=== PATIENT | male | born 1950 | race Caucasian/White ===

== ENCOUNTER 2022-04-17 10:35 | Outpatient (REF) | payer MEDICARE, SELFPAY ==
[2022-04-17 10:51] LABS: MANUAL DIFF FLAG NO
[2022-04-17 12:33] LABS: Basophils Percent Auto 0.7 % (0-2); Eosinophils Absolute Auto 0.2 X10*3/uL (0.0-0.4); Eosinophils Percent Auto 4.8 % (0-4); Hematocrit 38.5 % (42.0-52.0); Hemoglobin 12.6 g/dl (14.0-18.0); Imm Gran Abs Auto 0.01 X10*3/uL (0.00-0.03); Imm Gran Pct Auto 0.2 % (0.0-0.4); Lymphocytes Percent Auto 24.2 % (20-40); Mean Corpuscular HGB Conc 32.7 g/dl (31.0-36.0); Mean Corpuscular Hemoglobin 31.7 pg (27.0-33.0); Mean Platelet Volume 10.5 fL (9.4-12.4); Monocytes Absolute Auto 0.4 X10*3/uL (0.1-1.2); Neutrophils Absolute Auto 2.5 x10*3/uL (2.0-8.3); Neutrophils Percent Auto 60.1 % (45-73); Platelet Count 259 X10*3/uL (160-400); Red Blood Count 3.97 X10*6/uL (4.60-5.80); Red Cell Distribution Width 12.3 % (11.0-16.0); White Blood Count 4.2 X10*3/uL (4.8-10.8)
[2022-04-17 13:13] LABS: Appearance Urine CLEAR; Color Urine YELLOW; Glucose Urine UA NEG (NEG); Leukocyte Esterase Urine NEG (NEG); Nitrite Urine NEG (NEG); Specific Gravity - Urine 1.015 (1.005-1.025); Urine Blood NEG (NEG); Urine Ketones NEG (NEG); Urine Protein NEG (NEG-TRACE)
[2022-04-17 13:14] LABS: Alanine Aminotransferase 26 U/L (0-40); Albumin Level 4.2 g/dL (3.5-5.0); Alkaline Phosphatase 63 U/L (39-117); Anion Gap 12 (12-20); Aspartate Amino Transferase 28 U/L (5-37); Bilirubin Total 0.7 mg/dL (0.0-1.0); Blood Urea Nitrogen 18 mg/dL (9-16); Calcium 8.6 mg/dL (8.4-10.2); Carbon Dioxide 25 mmol/L (22-29); Chloride 106 mmol/L (96-108); Cholesterol 194 mg/dL; Estimated Glomerular Filt Rate > 60; Glucose Fasting 84 mg/dL (60-99); HDL Cholesterol 43 mg/dL; LDL Cholesterol Calculated 133 mg/dl; Potassium 4.2 mmol/L (3.3-5.1); Sodium 139 mmol/L (135-145); Total Protein 7.3 g/dL (6.5-8.0); Triglycerides 92 mg/dL
[2022-04-17 13:22] LABS: Free T4 (Free Thyroxine) 0.92 ng/dL (0.71-1.85); Prostate Specific Antigen 1.05 ng/mL (<0.05-4.0); Thyroid Stimulating Hormone 8.09 uIU/mL (0.32-4.0)
== END 2022-04-17 10:36 | disposition home or self-care (01) ==
LOC: HO.LAB 10:35
PROVIDERS: PCP Internal Medicine; Visit Provider Internal Medicine
DX: Z00.00 Encounter for general adult medical examination without abnormal findings (principal); Z12.5 Encounter for screening for malignant neoplasm of prostate; E03.9 Hypothyroidism, unspecified; E78.00 Pure hypercholesterolemia, unspecified; E55.9 Vitamin D deficiency, unspecified
CPT/HCPCS: 36415; 80053; 80061; 81003; 82306; 84153; 84439; 84443; 85025

== ENCOUNTER 2024-02-12 16:52 | Outpatient (AMB) | payer MEDICARE, SELFPAY ==
--- NOTE | 2024-02-12 16:59 | A.OFFPC_ITS ---
Vital Signs 02/12/24 17:00 Height 6 ft Weight 214 lb BMI 29.0 BP 164/90 H Blood Pressure Location Lt brachial Position Sitting Pulse 84 Pulse Source Pulse Oximeter Pulse Oximetry (%) 97 Oxygen Delivery Method Room Air Intake Visit Reasons: Physical Capture Manager Required: No Allergies No Known Allergies Allergy (Verified 02/12/24 17:11) Medication List - Last Reconciled 02/12/24 by Dionicio Hall MD levothyroxine 100 mcg PO QAM 90 days Tobacco use date assessed: 02/12/24 Fall risk assessment: No Falls in past year Last assessed Fall Risk: 02/12/24 Dental Screening Dental Screen Date: 02/12/24 Did you have a dental visit in the last 12 months?: No Did you have a dental problem in the last 6 months where you did not have access to dental care?: No HPI Physical HPI Details Patient comes in today for his annual physical examination States that he feels okay Denies any headaches or dizziness Denies any chest pains, no SOB No nausea/vomiting, no abdominal pain No change in bowel habits noted Denies any acute urinary symptoms Needs his Levothyroxine Rx refilled Patient has never had a colonoscopy done - states that his main problem that is preventing him from getting a colonoscopy is his does not drive and he has no one else in the area that can drive him home after his procedure He had a Cologuard ordered at his last visit in 2021 but he did not get it done in time and the order eventually - he would like to have this reordered FOR[facility]LY [facility], [facility] Medical History Perennial allergic rhinitis Vitamin D deficiency Dyslipidemia Overweight (BMI 25.0-29.9) Acquired hypothyroidism Surgical History No pertinent past surgical history Social History Housing: House Alcohol intake: never Patient Tobacco Use Status: Never used Tobacco Second Hand Smoke Exposure: Yes service: No Current occupational status: retired Cognitive needs: No Hearing needs: No Vision needs: No Questionnaire PHQ-9 Over the last 2 weeks, how often have you been bothered by any of the following problems? 1. Little interest or pleasure in doing things: not at all 2. Feeling down, depressed, or hopeless: not at all 3. Trouble falling or staying asleep, or sleeping too much: not at all 4. Feeling tired or having little energy: not at all 5. Poor appetite or overeating: not at all 6. Feeling bad about yourself - or that you are a failure or have let yourself or your family down: not at all 7. Trouble concentrating on things, such as reading the newspaper or watching television: not at all 8. Moving or speaking so slowly that other people could have noticed. Or the opposite - being so fidgety or restless that you have been moving around a lot more than usual: not at all 9. Thoughts that you would be better off or of hurting yourself in some way: not at all Total score: 0 Depression Screening Interpretation: Negative Depression Screening Done: Yes [id number] - PHQ-9 Billing: Yes Source: Developed by Drs. Ayush Harmon, Tiki Glaser, Hilario Randall and colleagues, with an educational kirby from [email or web address]. Thrive Questionnaire Date Thrive assessed: 02/12/24 I am a: Patient What is your living situation today?: I have a steady place to live Within the past 12 months, did the food you bought not last and you didn't have the money to get more?: Never true Within the past 12 months, did you worry whether your food would run out before you got money to buy more?: Never true Do you have trouble paying for medicines?: No Do you have trouble getting transportation to medical appointments?: No Do you have trouble paying your heating and electricity bill?: No Do you have trouble taking care of your child, family member or friend?: No Do you have trouble with day-to-day activities such as bathing, preparing meals, shopping, managing finances, etc.?: No Are you currently unemployed and looking for a job?: No Are you interested in more education?: No Please select the resources that you would like help with: None Currently or been in a relationship where the following occur: no concerns reported THRIVE Score: 0 AUDIT C Alcohol Use Questionnaire (AUDIT-C) 1. How often do you have a drink containing alcohol?: Never 3. How often do you have six or more drinks on one occasion?: Never Total Score: 0 Score Reviewed/Action Taken: Yes GENIA-7 AMB Questionnaire GENIA-7 Date GENIA - 7 assessed: 02/12/24 Feeling nervous, anxious, or on edge: 0 = Not at all Not being able to stop or control worryin = Not at all Worrying too much about different things: 0 = Not at all Trouble relaxin = Not at all Being so restless that it is hard to sit still: 0 = Not at all Becoming easily annoyed or irritable: 0 = Not at all Feeling afraid as if something awful might happen: 0 = Not at all Total GENIA-7 score (0-4 normal; 5-9 mild; 10-14 moderate; 15-21 severe): 0 Source: Developed by Drs. Ayush Harmon, Tiki Glaser, Hilario Randall and colleagues, with an educational kirby from [email or web address]. Review of Systems Const Denies chills, Denies fatigue, Denies fever(s), Denies headache(s), Denies malaise and Denies weakness Eyes Denies blurry vision, Denies change in vision, Denies irritation and Denies itchy eyes ENT Denies dysphagia, Denies dizziness, Denies otalgia, Denies headache(s), Denies nasal congestion, Denies neck pain, Denies odynophagia and Denies sore throat Card Denies chest pain, Denies rapid heart rate, Denies irregular heart rhythm, Denies palpitations and Denies dyspnea Resp Denies chest congestion, Denies cough, Denies dyspnea and Denies wheezing GI Denies abdominal pain, Denies bloating, Denies constipation, Denies dysphagia, Denies heartburn, Denies diarrhea, Denies nausea, Denies odynophagia and Denies vomiting Denies hematuria, Denies difficulty urinating, Denies dysuria, Denies urinary frequency and Denies urinary urgency Musc Denies back pain, Denies arthralgias, Denies joint swelling, Denies muscle weakness and Denies neck pain Skin/Breast Denies change in pigmentation, Denies lesions, Denies rash and Denies unusual bruising Neuro Denies dizziness, Denies headache(s), Denies paresthesias and Denies weakness Endo Denies fatigue and Denies palpitations Aller/Immun Denies itchy eyes and Denies wheezing Physical exam (Primary Care) Vital Signs: Last Vital Signs Pulse 84 02/12/24 17:00 BP 164/90 H 02/12/24 17:00 Pulse Ox 97 02/12/24 17:00 Oxygen Delivery Method Room Air 02/12/24 17:00 BMI result Body Mass Index 29.0 Tobacco/Smoking Status: Tobacco use Status Tobacco use date assessed 02/12/24 02/12/24 17:04 Patient Tobacco Use Status Never used Tobacco 02/12/24 17:04 PHQ-9: PHQ-9 Score PHQ-9: Total score 0 02/12/24 17:04 Depression Screening Interpretation: Negative Thrive Assessment: Date of Thrive Assessment Date Thrive assessed 02/12/24 02/12/24 17:04 Currently or been in a relationship where the following occur: no concerns reported Const General: no acute distress, alert and awake Orientation/consciousness: patient oriented x3 HENMT Head: Yes normocephalic and Yes atraumatic Ears: external ears normal, TM's normal bilaterally and EAC's normal General nose exam: No nasal discharge present Face and sinus: Yes normal facial exam and Yes sinuses nontender Teeth and gingiva: dentition normal Throat: Yes posterior oropharynx normal and Yes tonsils normal (no TP congestion) Eyes Eyelids: Yes eyelids normal Conjunctivae: conjunctivae normal Pupils: Equal, round and reactive pupils present EOM: EOMs intact bilaterally Neck Neck: Yes no lymphadenopathy and Yes supple Thyroid: Thyroid normal Resp Auscultation: clear to auscultation bilaterally, no rales and no wheezes Cardio Rate: regular rate Rhythm: regular rhythm Heart sounds: no murmurs GI Palpation (GI): Soft to palpation, nontender and No hepatosplenomegaly present Auscultation: normal bowel sounds General: Yes no CVA tenderness Back/Spine/Pelvis Back: no CVA tenderness Thoracic/Lumbar Spine: thoracic and lumbar spine normal to inspection Skin Lesions: no lesions Rashes: no rashes Neuro General: patient oriented x3, moves all extremities, no focal motor deficits and CN's II-XI intact bilaterally Cranial nerves: Yes Equal, round and reactive pupils present Cognition (Neuro): normal cognition Gait exam (Neuro): Normal gait present Extrem General: Yes no clubbing, cyanosis or edema Assessment and Plan Assessment & Plan (1) Annual physical exam: Code(s): Z00.00 - Encounter for general adult medical examination without abnormal findings Plan: Check labs (2) 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 Code(s): E03.9 - Hypothyroidism, unspecified Plan: Continue Levothyroxine 100 mcg QD Will recheck his TFTs for follow up (3) Elevated blood pressure reading: Code(s): R03.0 - Elevated blood-pressure reading, without diagnosis of hypertension Plan: Patient has a history of white coat syndrome His BP readings at home have often been much lower (mostly normal) than readings here in the office in the past Reinforced low-sodium diet Patient is reminded to continue monitoring his BP regularly and to keep a BP diary, which he is to bring in at his next follow-up visit for review (4) Dyslipidemia: Code(s): E78.5 - Hyperlipidemia, unspecified Plan: Reinforced low cholesterol diet Will recheck his fasting lipids INOCENTE for follow up (5) Vitamin D deficiency: Code(s): E55.9 - Vitamin D deficiency, unspecified Plan: Patient was taking 5000 units of Vitamin D3 daily in the past Will recheck his Vitamin D level for follow up (6) Perennial allergic rhinitis: Code(s): J30.89 - Other allergic rhinitis Plan: Follows up with ENT regularly for his sinus allergies/congestion; was considering endoscopic sinus surgery but again could not proceed with surgery as he has no options for transportation as his is no longer driving and he has no other family in the area (7) Overweight (BMI 25.0-29.9): Code(s): E66.3 - Overweight Plan: Reinforced diet/exercise as tolerated/lose weight (8) Colon cancer screening: Code(s): Z12.11 - Encounter for screening for malignant neoplasm of colon Plan: Patient has never had a screening colonoscopy done, mainly because he reportedly has no one available to drive him home after his procedure States that he has no increased risk or family history of colon cancer We previously ordered Cologuard testing for him but he was not able to get the test done timely and the order eventually ; he is presently requesting for a new order and will get the test done as soon as he gets it - Cologuard reordered Plan Follow up in 6 months Orders: Orders Complete Blood Count Auto Diff Today D64.9 - Anemia, unspecified, Z00.00 - Encounter for general adult medical examination without abnormal findings Thyroid Stimulating Hormone Today E03.9 - Hypothyroidism, unspecified, Z00.00 - Encounter for general adult medical examination without abnormal findings Free T4 (Free Thyroxine) Today E03.9 - Hypothyroidism, unspecified, Z00.00 - Encounter for general adult medical examination without abnormal findings Comprehensive [place]. Panel Fast Today E78.00 - Pure hypercholesterolemia, unspecified, Z00.00 - Encounter for general adult medical examination without abnormal findings Lipid Panel Today E78.00 - Pure hypercholesterolemia, unspecified, Z00.00 - Encounter for general adult medical examination without abnormal findings Vitamin D 25-OH Total Today E55.9 - Vitamin D deficiency, unspecified, Z00.00 - Encounter for general adult medical examination without abnormal findings Prostate Specific Antigen Today N40.0 - Benign prostatic hyperplasia without lower urinary tract symptoms, Z00.00 - Encounter for general adult medical examination without abnormal findings UA CC w/rflx Micro + Cult Today R30.0 - Dysuria, Z00.00 - Encounter for general adult medical examination without abnormal findings Referrals Cologuard Test Z12.11 - Encounter for screening for malignant neoplasm of colon, Z12.12 - Encounter for screening for malignant neoplasm of rectum Medications: Refilled levothyroxine 100 mcg PO QAM 90 days 90 tabs 1RF Review Patient declined Colonoscopy: 02/12/24 Coding Level of Care Code Est Pt Prev Care >65y(47010) Diagnoses Annual physical exam Z00.00 Acquired hypothyroidism E03.9 Elevated blood pressure reading R03.0 Dyslipidemia E78.5 Vitamin D deficiency E55.9 Perennial allergic rhinitis J30.89 Overweight (BMI 25.0-29.9) E66.3 Colon cancer screening Z12.11
[2024-02-12 17:00] VITALS: BP 164/90; PULSE 84; O2SAT 97; BMI 29.0
== END 2024-02-12 17:30 | disposition home or self-care (01) ==
PROVIDERS: PCP Internal Medicine; Visit Provider Internal Medicine
DX: Z00.00 Encounter for general adult medical examination without abnormal findings (principal); E03.9 Hypothyroidism, unspecified; R03.0 Elevated blood-pressure reading, without diagnosis of hypertension; E78.5 Hyperlipidemia, unspecified; E55.9 Vitamin D deficiency, unspecified; J30.89 Other allergic rhinitis; E66.3 Overweight; Z12.11 Encounter for screening for malignant neoplasm of colon
CPT/HCPCS: 99397

== ENCOUNTER 2024-02-18 09:30 | Outpatient (REF) | payer MEDICARE, SELFPAY ==
[2024-02-18 09:54] LABS: MANUAL DIFF FLAG NO
[2024-02-18 10:50] LABS: Basophils Absolute Auto 0.1 X10*3/uL (0.0-0.2); Basophils Percent Auto 1.3 % (0-2); Eosinophils Absolute Auto 0.2 X10*3/uL (0.0-0.4); Eosinophils Percent Auto 5.1 % (0-4); Hematocrit 37.9 % (42.0-52.0); Hemoglobin 12.8 g/dl (14.0-18.0); Imm Gran Abs Auto 0.01 X10*3/uL (0.00-0.03); Imm Gran Pct Auto 0.3 % (0.0-0.4); Lymphocytes Absolute Auto 0.8 X10*3/uL (1.2-4.9); Lymphocytes Percent Auto 20.9 % (20-40); Mean Corpuscular HGB Conc 33.8 g/dl (31.0-36.0); Mean Corpuscular Hemoglobin 32.7 pg (27.0-33.0); Mean Corpuscular Volume 96.7 fL (80.0-98.0); Mean Platelet Volume 10.2 fL (9.4-12.4); Monocytes Absolute Auto 0.4 X10*3/uL (0.1-1.2); Neutrophils Absolute Auto 2.3 x10*3/uL (2.0-8.3); Neutrophils Percent Auto 61.4 % (45-73); Platelet Count 245 X10*3/uL (160-400); Red Blood Count 3.92 X10*6/uL (4.60-5.80); Red Cell Distribution Width 12.3 % (11.0-16.0); White Blood Count 3.7 X10*3/uL (4.8-10.8)
[2024-02-18 11:14] LABS: Appearance Urine Clear; Color Urine Yellow; Glucose Urine UA Negative (Negative); Leukocyte Esterase Urine Negative (Negative); Nitrite Urine Negative (Negative); PH 7.5 (5.0-9.0); Urine Blood Negative (Negative); Urine Ketones Negative (Negative); Urine Protein Negative (Neg-Trace)
[2024-02-18 11:57] LABS: Alanine Aminotransferase 29 U/L (0-40); Albumin Level 4.1 g/dL (3.5-5.0); Alkaline Phosphatase 68 U/L (39-117); Anion Gap 14 (12-20); Aspartate Amino Transferase 37 U/L (5-37); Bilirubin Total 1.1 mg/dL (0.0-1.0); Blood Urea Nitrogen 21 mg/dL (9-16); Calcium 9.4 mg/dL (8.4-10.2); Carbon Dioxide 27 mmol/L (22-29); Chloride 105 mmol/L (96-108); Cholesterol 171 mg/dL (<200); Estimated Glomerular Filt Rate > 60; Glucose Fasting 83 mg/dL (60-99); HDL Cholesterol 53 mg/dL (>40); LDL Cholesterol Calculated 110 mg/dL (<100); Sodium 142 mmol/L (135-145); Total Protein 7.6 g/dL (6.5-8.0); Triglycerides 43 mg/dL (<150)
[2024-02-18 12:02] LABS: Free T4 (Free Thyroxine) 1.18 ng/dL (0.71-1.85); Thyroid Stimulating Hormone 2.75 uIU/mL (0.32-4.0); Vitamin D 25-OH Total 25.2 ng/mL (>30)
[2024-02-18 12:11] LABS: Prostate Specific Antigen 1.19 ng/mL (<0.05-4.0)
== END 2024-02-18 09:31 | disposition home or self-care (01) ==
LOC: HO.LAB 09:30
PROVIDERS: PCP Internal Medicine; Visit Provider Internal Medicine
DX: Z00.00 Encounter for general adult medical examination without abnormal findings (principal); E55.9 Vitamin D deficiency, unspecified; R30.0 Dysuria; E03.9 Hypothyroidism, unspecified; E78.00 Pure hypercholesterolemia, unspecified; D64.9 Anemia, unspecified; N40.0 Benign prostatic hyperplasia without lower urinary tract symptoms; Z12.5 Encounter for screening for malignant neoplasm of prostate
CPT/HCPCS: 36415; 80053; 80061; 81003; 82306; 84153; 84439; 84443; 85025

== ENCOUNTER 2025-02-19 16:45 | Outpatient (AMB) | payer MEDICARE, SELFPAY ==
[2025-02-19 16:56] VITALS: BP 164/90; PULSE 97; TEMP 36.2; O2SAT 97; BMI 27.8
--- NOTE | 2025-02-19 16:56 | A.OFFPC_ITS ---
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 Required: No Accompanied by: Self / Same As Patient Allergies No Known Allergies Allergy (Verified 02/19/25 17:28) Medication List - Last Reconciled 02/19/25 by Dionicio Hall MD levothyroxine 100 mcg PO QAM 90 days Tobacco use date assessed: 02/19/25 Fall risk assessment: No Falls in past year Last assessed Fall Risk: 02/19/25 Dental Screening Dental Screen Date: 02/19/25 Did you have a dental visit in the last 12 months?: No Did you have a dental problem in the last 6 months where you did not have access to dental care?: No Was dental information given to patient?: No HPI PHYSICAL HPI Details Patient comes in today for his annual physical examination States that he has been experiencing problems with ambulation for the past few months Patient relates that he's had increased swelling of his legs for at least the past 6 months and he feels that his swelling has gotten a lot worse over the past month or two States that lately, he's had to use both of his arms to push off on his chair just to be able to get up from the chair Patient states that since his 's health condition and cognitive problems got worse last year, he's had to sleep in his recliner at night He denies any headaches or dizziness Denies any chest pains, no increased SOB No nausea/vomiting, no abdominal pain No change in bowel habits noted He denies any acute urinary symptoms Needs his Levothyroxine Rx refilled Patient has declined going for a screening colonoscopy in the past, mostly because he has no one to help drive him home after his procedure as his , who is his only family, is unable to drive He also cannot leave his unattended on her own for any length of time due to her declining cognition but he ended up getting Cologuard testing done instead last year on 09/11/2024 - Cologuard came back negative He's had no follow up labs done recently [facility] Medical History (Updated 02/21/25 @ 05:15 by Dionicio Hall MD) Cardiac arrhythmia Colonoscopy refused Lymphedema of both lower extremities Perennial allergic rhinitis Vitamin D deficiency Dyslipidemia Overweight (BMI 25.0-29.9) Acquired hypothyroidism Surgical History No pertinent past surgical history Social History Housing: House Alcohol intake: never Patient Tobacco Use Status: Never used Tobacco e-Cigarette/Vaping Use: Never Used Second Hand Smoke Exposure: Yes service: No Current occupational status: retired Cognitive needs: No Hearing needs: No Vision needs: No Questionnaire PHQ-9 Over the last 2 weeks, how often have you been bothered by any of the following problems? 1. Little interest or pleasure in doing things: not at all 2. Feeling down, depressed, or hopeless: not at all 3. Trouble falling or staying asleep, or sleeping too much: not at all 4. Feeling tired or having little energy: several days 5. Poor appetite or overeating: not at all 6. Feeling bad about yourself - or that you are a failure or have let yourself or your family down: not at all 7. Trouble concentrating on things, such as reading the newspaper or watching television: not at all 8. Moving or speaking so slowly that other people could have noticed. Or the opposite - being so fidgety or restless that you have been moving around a lot more than usual: several days 9. Thoughts that you would be better off or of hurting yourself in some way: not at all Total score: 2 Depression Screening Interpretation: Negative Depression Screening Done: Yes 28909 - PHQ-9 Billing: Yes Source: Developed by Drs. Ayush Harmon, Tiki Glaser, Hilario Randall and colleagues, with an educational kirby from [employer]. Thrive Questionnaire Date Thrive assessed: 02/19/25 I am a: Patient What is your living situation today?: I have a steady place to live Within the past 12 months, did the food you bought not last and you didn't have the money to get more?: Never true Within the past 12 months, did you worry whether your food would run out before you got money to buy more?: Never true Do you have trouble paying for medicines?: No Do you have trouble getting transportation to medical appointments?: No Do you have trouble paying your heating and electricity bill?: No Do you have trouble taking care of your child, family member or friend?: No Do you have trouble with day-to-day activities such as bathing, preparing meals, shopping, managing finances, etc.?: No Are you currently unemployed and looking for a job?: No Are you interested in more education?: I choose not to answer this question Please select the resources that you would like help with: None Currently or been in a relationship where the following occur: No concerns reported THRIVE Score: 0 AUDIT C Alcohol Use Questionnaire (AUDIT-C) 1. How often do you have a drink containing alcohol?: Never 2. How many drinks containing alcohol do you have on a typical day when you are drinking?: 1 or 2 3. How often do you have six or more drinks on one occasion?: Never Total Score: 0 Score Reviewed/Action Taken: Yes GENIA-7 AMB Questionnaire GENIA-7 Date GENIA - 7 assessed: 02/19/25 Feeling nervous, anxious, or on edge: 0 = Not at all Not being able to stop or control worryin = Not at all Worrying too much about different things: 0 = Not at all Trouble relaxin = Not at all Being so restless that it is hard to sit still: 0 = Not at all Becoming easily annoyed or irritable: 0 = Not at all Feeling afraid as if something awful might happen: 0 = Not at all Total GENIA-7 score (0-4 normal; 5-9 mild; 10-14 moderate; 15-21 severe): 0 Source: Developed by Drs. Ayush Harmon, Tiki Glaser, Hilario Randall and colleagues, with an educational kirby from [employer]. GENIA-7 Assessment Billing GENIA-7 Assessment Tool: GENIA-7 Assessment 75118 Review of Systems Const Denies chills, Denies fatigue, Denies fever(s), Denies headache(s), Denies malaise and Denies weakness Eyes Denies blurry vision, Denies change in vision, Denies irritation and Denies itchy eyes ENT Denies dysphagia, Denies dizziness, Denies otalgia, Denies headache(s), Denies nasal congestion, Denies neck pain, Denies odynophagia and Denies sore throat Card Denies rapid heart rate, Denies irregular heart rhythm, Denies palpitations and Denies dyspnea Resp Denies chest congestion, Denies cough, Denies dyspnea and Denies wheezing GI Denies abdominal pain, Denies bloating, Denies constipation, Denies dysphagia, Denies heartburn, Denies diarrhea, Denies nausea, Denies odynophagia and Denies vomiting Denies hematuria, Denies difficulty urinating, Denies dysuria, Denies urinary frequency and Denies urinary urgency Musc Reports abnormal gait (has had trouble walking due to increasing edema in legs and feet), Denies back pain, Denies arthralgias, Denies joint swelling, Denies muscle weakness, Denies neck pain and Reports stiffness Skin/Breast Denies change in pigmentation, Denies lesions, Denies rash and Denies unusual bruising Neuro Reports abnormal gait (has had trouble walking due to increasing edema in legs and feet), Denies dizziness, Denies headache(s), Denies paresthesias and Denies weakness Endo Denies fatigue and Denies palpitations Dayron/Lymph Details: increases swelling of both legs and feet Aller/Immun Denies itchy eyes and Denies wheezing Physical exam (Primary Care) Vital Signs: Last Vital Signs Temp 97.1 F 02/19/25 16:56 Pulse 97 02/19/25 16:56 BP 164/90 H 02/19/25 16:56 Pulse Ox 97 02/19/25 16:56 Oxygen Delivery Method Room Air 02/19/25 16:56 BMI result Body Mass Index 27.8 Tobacco/Smoking Status: Tobacco use Status Tobacco use date assessed 02/19/25 02/19/25 17:01 Patient Tobacco Use Status Never used Tobacco 02/19/25 17:01 e-Cigarette/Vaping Use Never Used 02/19/25 17:01 PHQ-9: PHQ-9 Score PHQ-9: Total score 2 02/20/25 23:00 Depression Screening Interpretation: Negative Thrive Assessment: Date of Thrive Assessment Date Thrive assessed 02/19/25 02/19/25 17:01 Currently or been in a relationship where the following occur: No concerns rep orted Const General: no acute distress, alert and awake Orientation/consciousness: patient oriented x3 [facility] Head: Yes normocephalic and Yes atraumatic Ears: external ears normal, TM's normal bilaterally and EAC's normal General nose exam: No nasal discharge present Face and sinus: Yes normal facial exam and Yes sinuses nontender Teeth and gingiva: dentition normal Throat: Yes posterior oropharynx normal and Yes tonsils normal (no TP congestion) Eyes Eyelids: Yes eyelids normal Conjunctivae: conjunctivae normal Pupils: Equal, round and reactive pupils present EOM: EOMs intact bilaterally Neck Neck: Yes no lymphadenopathy and Yes supple Thyroid: Thyroid normal Resp Auscultation: clear to auscultation bilaterally, no rales and no wheezes Cardio Rate: regular rate Rhythm: abnormal rhythm with ectopic beats Heart sounds: no murmurs GI Palpation (GI): Soft to palpation, nontender and No hepatosplenomegaly present Auscultation: normal bowel sounds General: Yes no CVA tenderness Back/Spine/Pelvis Back: no CVA tenderness Thoracic/Lumbar Spine: No lumbar spinal tenderness Skin Other: (+) some mild scaling erythematous rash noted on both lower legs and ankles Neuro General: patient oriented x3, moves all extremities, no focal motor deficits and CN's II-XI intact bilaterally Cranial nerves: Yes Equal, round and reactive pupils present Cognition (Neuro): normal cognition Gait exam (Neuro): Normal gait present Extrem General: No clubbing, No cyanosis and Yes edema (2 to 3+ bipedal edema noted over both lower extremities) Coding Level of Care Code Est Pt Prev Care >65y(72239) Diagnoses Annual physical exam Z00.00 Lymphedema of both lower extremities I89.0 Other cardiac arrhythmia I49.8 Arrhythmia type: other cardiac arrhythmia Acquired hypothyroidism E03.9 Elevated blood pressure reading R03.0 Dyslipidemia E78.5 Vitamin D deficiency E55.9 Perennial allergic rhinitis J30.89 Overweight (BMI 25.0-29.9) E66.3 Additional Codes GENIA-7 Assessment Billing - GENIA-7 Assessment Tool: GENIA-7 Assessment 13973 ([id number]) PHQ-9 - 91982 - PHQ-9 Billing: Yes ([id number]) Assessment & Plan Assessment & Plan (1) Annual physical exam: Code(s): Z00.00 - Encounter for general adult medical examination without abnormal findings Category: Medical Plan: Check labs Patient had a negative Cologuard test done last year on 09/11/2024; he has never had a screening colonoscopy done in the past (2) Lymphedema of both lower extremities: Code(s): I89.0 - Lymphedema, not elsewhere classified Category: Medical Plan: Will send patient for venous doppler of both lower extremities for further evaluation and primarily to r/o any DVT Will also send him for some labs INOCENTE for further evaluation Will refer him as well to vascular surgery for further evaluation and management (3) Cardiac arrhythmia: Code(s): I49.9 - Cardiac arrhythmia, unspecified Category: Medical Qualifiers: Arrhythmia type: other cardiac arrhythmia Qualified Code(s): I49.8 - Other specified cardiac arrhythmias Plan: Patient appears to have frequent ectopic beats on auscultation of his heart during today's physical exam Will send him for a 12-lead EKG for further evaluation and this can be done at the same time when patient goes for his labs, which he is instructed to do INOCENTE Will also send him for echocardiogram and chest x-rays INOCENTE for further evaluation (4) 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 Code(s): E03.9 - Hypothyroidism, unspecified Category: Medical Plan: Continue Levothyroxine 100 mcg QD - Rx refilled Will recheck patient's TFTs for follow up (5) Elevated blood pressure reading: Code(s): R03.0 - Elevated blood-pressure reading, without diagnosis of hypertension Category: Medical Plan: (+) Hx of white coat syndrome Patient's BP readings at home tends to be much lower than his readings here in the office in the past Reinforced low sodium diet Patient is reminded to continue monitoring his blood pressure at home and to keep a blood pressure diary - he is advised to bring his BP diary in with him at his next follow up appointment for us to review them (6) Dyslipidemia: Code(s): E78.5 - Hyperlipidemia, unspecified Category: Medical Plan: Reinforced low cholesterol diet Will recheck his fasting lipids INOCENTE for follow up (7) Vitamin D deficiency: Code(s): E55.9 - Vitamin D deficiency, unspecified Category: Medical Plan: Will recheck patient's vitamin D level for follow up (8) Perennial allergic rhinitis: Code(s): J30.89 - Other allergic rhinitis Category: Medical Plan: Patient follows up with ENT regularly for his sinus allergies/congestion He was considering endoscopic sinus surgery but could not proceed with surgery as he has no options for transportation since his is no longer driving and he has no other family in the area (9) Overweight (BMI 25.0-29.9): Code(s): E66.3 - Overweight Category: Medical Plan: Reinforced diet; exercise and weight loss are not practical at this time due to patient's comorbidities and worsening lymphedema and balance/gait impairment Plan Follow up in 3 months Orders: Orders B Type Natriuretic Peptide 02/19/25 I50.9 - Heart failure, unspecified, M79.89 - Other specified soft tissue disorders, Z00.00 - Encounter for general adult medical examination without abnormal findings Free T4 (Free Thyroxine) 02/19/25 E03.9 - Hypothyroidism, unspecified, M79.89 - Other specified soft tissue disorders, Z00.00 - Encounter for general adult medical examination without abnormal findings Vitamin D 25-OH Total 02/19/25 E55.9 - Vitamin D deficiency, unspecified, M79.89 - Other specified soft tissue disorders, Z00.00 - Encounter for general adult medical examination without abnormal findings UA CC w/rflx Micro + Cult 02/19/25 M79.89 - Other specified soft tissue disorders, R30.0 - Dysuria, Z00.00 - Encounter for general adult medical examination without abnormal findings ECG 12 lead EKG 02/19/25 I49.9 - Cardiac arrhythmia, unspecified, M79.89 - Other specified soft tissue disorders CA echo transthoracic complete 02/19/25 I49.9 - Cardiac arrhythmia, unspecified, M79.89 - Other specified soft tissue disorders US venous duplex LE BI 02/19/25 M79.89 - Other specified soft tissue disorders Complete Blood Count Auto Diff 02/19/25 D64.9 - Anemia, unspecified, M79.89 - Other specified soft tissue disorders, Z00.00 - Encounter for general adult medical examination without abnormal findings Comprehensive [place]. Panel Fast 02/19/25 E78.00 - Pure hypercholesterolemia, unspecified, M79.89 - Other specified soft tissue disorders, Z00.00 - Encounter for general adult medical examination without abnormal findings Lipid Panel 02/19/25 E78.00 - Pure hypercholesterolemia, unspecified, M79.89 - Other specified soft tissue disorders, Z00.00 - Encounter for general adult medical examination without abnormal findings Thyroid Stimulating Hormone 02/19/25 E03.9 - Hypothyroidism, unspecified, M79.89 - Other specified soft tissue disorders, Z00.00 - Encounter for general adult medical examination without abnormal findings Vitamin B12 and Folate 02/19/25 E53.8 - Deficiency of other specified B group vitamins, M79.89 - Other specified soft tissue disorders, Z00.00 - Encounter for general adult medical examination without abnormal findings Prostate Specific Antigen 02/19/25 N40.0 - Benign prostatic hyperplasia without lower urinary tract symptoms, Z00.00 - Encounter for general adult medical examination without abnormal findings C Reactive Protein 02/19/25 M79.89 - Other specified soft tissue disorders, Z00.00 - Encounter for general adult medical examination without abnormal findings Erythrocyte Sedimentation Rate 02/19/25 M79.7 - Fibromyalgia, M79.89 - Other specified soft tissue disorders XR chest 2V 02/19/25 I49.9 - Cardiac arrhythmia, unspecified, M79.89 - Other specified soft tissue disorders Referrals Vascular Surgery Referral I89.0 - Lymphedema, not elsewhere classified Medications: Refilled levothyroxine 100 mcg PO QAM 90 days 90 tabs 1RF
== END 2025-02-19 17:53 | disposition home or self-care (01) ==
LOC: HO.HMCH 16:46
PROVIDERS: PCP Internal Medicine; Visit Provider Internal Medicine
DX: Z00.00 Encounter for general adult medical examination without abnormal findings (principal); I89.0 Lymphedema, not elsewhere classified; I49.8 Other specified cardiac arrhythmias; E03.9 Hypothyroidism, unspecified; R03.0 Elevated blood-pressure reading, without diagnosis of hypertension; E78.5 Hyperlipidemia, unspecified; E55.9 Vitamin D deficiency, unspecified; J30.89 Other allergic rhinitis; E66.3 Overweight

== ENCOUNTER → 2025-02-19 16:45 | Outpatient (BNVA) | payer MEDICARE, SELFPAY | PROVIDERS: PCP Internal Medicine; Visit Provider Internal Medicine | DX: Z00.00 Encounter for general adult medical examination without abnormal findings (principal); I89.0 Lymphedema, not elsewhere classified; I49.8 Other specified cardiac arrhythmias; E03.9 Hypothyroidism, unspecified; R03.0 Elevated blood-pressure reading, without diagnosis of hypertension; E78.5 Hyperlipidemia, unspecified; E55.9 Vitamin D deficiency, unspecified; J30.89 Other allergic rhinitis; E66.3 Overweight; Z68.27 Body mass index [BMI] 27.0-27.9, adult; Z79.899 Other long term (current) drug therapy; Z13.31 Encounter for screening for depression | CPT/HCPCS: 96127; 99397 ==

== ENCOUNTER 2025-02-24 12:02 | Outpatient (REF) | payer MEDICARE, SELFPAY ==
[2025-02-24 14:20] LABS: Appearance Urine Clear; Color Urine Yellow; Glucose Urine UA Negative (Negative); Leukocyte Esterase Urine Negative (Negative); Nitrite Urine Negative (Negative); Urine Blood Negative (Negative); Urine Ketones Negative (Negative); Urine Protein Negative (Neg-Trace)
[2025-02-24 14:23] LABS: MANUAL DIFF FLAG NO
[2025-02-24 14:36] LABS: Eosinophils Absolute Auto 0.2 X10*3/uL (0.0-0.4); Eosinophils Percent Auto 3.7 % (0-4); Hematocrit 32.6 % (42.0-52.0); Hemoglobin 10.8 g/dl (14.0-18.0); Imm Gran Abs Auto 0.01 X10*3/uL (0.00-0.03); Imm Gran Pct Auto 0.2 % (0.0-0.4); Lymphocytes Absolute Auto 0.8 X10*3/uL (1.2-4.9); Lymphocytes Percent Auto 19.4 % (20-40); Mean Corpuscular HGB Conc 33.1 g/dl (31.0-36.0); Mean Corpuscular Volume 96.4 fL (80.0-98.0); Monocytes Absolute Auto 0.5 X10*3/uL (0.1-1.2); Monocytes Percent Auto 11.5 % (2-11); Neutrophils Absolute Auto 2.6 x10*3/uL (2.0-8.3); Neutrophils Percent Auto 64.2 % (45-73); Platelet Count 354 X10*3/uL (160-400); Red Blood Count 3.38 X10*6/uL (4.60-5.80); Red Cell Distribution Width 13.2 % (11.0-16.0); White Blood Count 4.1 X10*3/uL (4.8-10.8)
[2025-02-24 14:39] LABS: B Type Natriuretic Peptide 61 pg/mL (<100)
[2025-02-24 15:14] LABS: Alanine Aminotransferase 24 U/L (0-40); Albumin Level 3.6 g/dL (3.5-5.0); Alkaline Phosphatase 99 U/L (39-117); Anion Gap 11 (12-20); Aspartate Amino Transferase 46 U/L (5-37); Bilirubin Total 0.6 mg/dL (0.0-1.0); Blood Urea Nitrogen 20 mg/dL (9-16); C Reactive Protein 1.37 mg/dL (< or = 0.50); Calcium 8.6 mg/dL (8.4-10.2); Carbon Dioxide 27 mmol/L (22-29); Chloride 104 mmol/L (96-108); Cholesterol 160 mg/dL (<200); Estimated Glomerular Filt Rate > 60; Free T4 (Free Thyroxine) 0.92 ng/dL (0.71-1.85); Glucose Fasting 85 mg/dL (60-99); HDL Cholesterol 50 mg/dL (>40); LDL Cholesterol Calculated 100 mg/dL (<100); Potassium 3.9 mmol/L (3.3-5.1); Sodium 138 mmol/L (135-145); Thyroid Stimulating Hormone 17.79 uIU/mL (0.32-4.0); Total Protein 7.8 g/dL (6.5-8.0); Triglycerides 53 mg/dL (<150); Vitamin D 25-OH Total 26.2 ng/mL (>30)
[2025-02-24 15:15] LABS: Folate 11.9 ng/mL (> or = 4.0); Vitamin B12 321 pg/mL (200-900)
[2025-02-24 15:31] LABS: Erythrocyte Sedimentation Rate 73 MM/HR (0-15)
== END 2025-02-24 12:03 | disposition home or self-care (01) ==
LOC: HO.WFDLDS 12:02
PROVIDERS: Visit Provider Internal Medicine
DX: Z00.00 Encounter for general adult medical examination without abnormal findings (principal); N40.0 Benign prostatic hyperplasia without lower urinary tract symptoms; E78.00 Pure hypercholesterolemia, unspecified; E55.9 Vitamin D deficiency, unspecified; I50.9 Heart failure, unspecified; M79.7 Fibromyalgia; E53.8 Deficiency of other specified B group vitamins; D64.9 Anemia, unspecified; R30.0 Dysuria; M79.89 Other specified soft tissue disorders; E03.9 Hypothyroidism, unspecified; Z12.5 Encounter for screening for malignant neoplasm of prostate
CPT/HCPCS: 36415; 80053; 80061; 81003; 82306; 82607; 82746; 83880; 84153; 84439; 84443; 85025; 85652; 86140

== ENCOUNTER 2025-02-25 13:18 | Outpatient (REF) | payer MEDICARE, SELFPAY ==
--- NOTE | ~2025-02-25 | XR_ITS ---
EXAMINATION: XR CHEST CLINICAL INFORMATION: I49.9 - Cardiac arrhythmia, unspecified COMPARISON: None available. TECHNIQUE: 2 views of the chest were obtained. FINDINGS: There is borderline cardiac enlargement. The hilar, and mediastinal contours are normal. The lungs are diffusely hyperaerated, however clear bilaterally. There is no pneumothorax or pleural effusion. There is no focal osseous or soft tissue abnormality. There are degenerative changes throughout the spine. XR/XR chest 2V IMPRESSION: 1. COPD. 2. No superimposed active disease. 3. Borderline cardiomegaly Electronically signed by: Lizandro Gauthier MD 02/25/2025 01:48 PM EDT
--- NOTE | ~2025-02-25 | US_ITS ---
EXAMINATION: US TRIPLEX LOWER EXTREMITY, BILATERAL CLINICAL INFORMATION: Edema of the lower extremities. Rule out chronic DVT. COMPARISON: None available. TECHNIQUE: Color-flow triplex imaging with spectral analysis and compression Doppler were performed on the bilateral lower extremities. FINDINGS: Respiratory variation, normal compression and augmented flow are noted throughout the bilateral lower extremities. The visualized common femoral vein, superficial femoral vein, profunda femoral vein, popliteal vein and midcalf left peroneal and bilateral posterior tibial venous segments show no evidence of deep venous thrombosis bilaterally. The right peroneal vein could not be well seen. There is no Blake's cyst. US/US venous duplex LE BI IMPRESSION: No evidence of deep venous thrombosis involving the bilateral lower extremities. Electronically signed by: Lizandro Gauthier MD 02/25/2025 02:18 PM EDT
== END 2025-02-25 13:19 | disposition home or self-care (01) ==
LOC: HO.US 13:18
PROVIDERS: PCP Internal Medicine; Visit Provider Internal Medicine
DX: M79.89 Other specified soft tissue disorders (principal); I49.9 Cardiac arrhythmia, unspecified
CPT/HCPCS: 71046; 93970

== ENCOUNTER → 2025-02-25 13:25 | Outpatient (BNV) | payer MEDICARE, SELFPAY | PROVIDERS: PCP Internal Medicine; Visit Provider Radiology Diagnostic Radiology | DX: R60.0 Localized edema (principal); J44.9 Chronic obstructive pulmonary disease, unspecified | CPT/HCPCS: 71046; 93970 ==

== ENCOUNTER 2025-03-16 15:18 | Outpatient (AMB) | payer MEDICARE, SELFPAY ==
[2025-03-16 15:37] VITALS: BMI 27.8
--- NOTE | 2025-03-16 15:37 | A.OFFVIS_ITS ---
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 Left LE is worse than Right LE. 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 Complaints include pain over varicosities, swelling of lower extremities, cramping, fatigue, and heaviness of the lower extremities. It has been affecting their daily activities including walking, standing, and physical activity. It is noted slightly more in the left leg. He states this has been going on for years on and off since 2016 but has come back in December 2024 and getting worse. He is a nonsmoker. He is not a diabetic. He does sleep either in a chair and puts his feet up in another chair or sleeps on the couch, to be closer to his at night. He is also being sent for a cardiac echo later this week. Patient denies any previous venous surgery or injections. Patient denies any history of DVT/ PE. Patient denies any history of phlebitis. Trial of compression includes - elevation with little relief They now present for vascular evaluation regarding their varicose veins. [facility] Medical History Cardiac arrhythmia Colonoscopy refused Lymphedema of both lower extremities Perennial allergic rhinitis Vitamin D deficiency Dyslipidemia Overweight (BMI 25.0-29.9) Acquired hypothyroidism Surgical History No pertinent past surgical history Social History Housing: House Alcohol intake: never Patient Tobacco Use Status: Never used Tobacco e-Cigarette/Vaping Use: Never Used Second Hand Smoke Exposure: Yes service: No Current occupational status: retired Cognitive needs: No Hearing needs: No Vision needs: No Review of Systems Const Reports as per HPI and Denies weakness ENT Reports Normal hearing present and Denies dizziness Card Reports as per HPI, Denies chest pain, Denies chest pain at rest, Denies chest pain with activity, Denies dyspnea and Denies dyspnea on exertion Resp Reports as per HPI, Denies cough, Denies dyspnea and Denies dyspnea on exertion GI Reports as per HPI, Denies abdominal pain, Denies nausea and Denies vomiting Musc Denies numbness Skin/Breast Reports as per HPI, Denies erythema and Denies wounds Neuro Reports Normal hearing present, Denies dizziness, Denies numbness, Denies Sensory deficit (Neuro) and Denies weakness Psych Reports no additional complaints Endo Reports no additional complaints Physical Exam Vital Signs: BMI result Body Mass Index 27.8 Const General: healthy appearing and no acute distress Orientation/consciousness: patient oriented x3 HEENT Head: Yes normal to inspection Ears: hearing grossly normal bilaterally Mouth: Normal oral and palatal mucosa present Resp Effort & Inspection: normal respiratory effort and able to speak in complete sentences Auscultation: clear to auscultation bilaterally Cardio Jugular venous distension: no JVD Rate: regular rate Rhythm: regular rhythm Heart sounds: S1 normal heart sound present and S2 normal heart sound present Bruits: no abdominal aortic bruits, no carotid bruits, no femoral bruits and no renal bruits Peripheral pulses: Peripheral pulses 2+ throughout GI Inspection: Yes normal to inspection Palpation (GI): No Abdominal aortic bruit present Skin General skin exam: no rashes or lesions noted Wounds: no wounds Hair: normal Neuro General: patient oriented x3 Cranial nerves: Yes Normal hearing present Cognition (Neuro): normal cognition Gait exam (Neuro): Normal gait present Motor exam (neuro): 5/5 motor strength present throughout Sensory Exam: No Sensory deficit (Neuro) Extrem Other: Left lower extremity: +2/3 pitting edema noted. No wounds or injuries noted. Small varicosities noted around the knee. Discoloration noted at the ankles. Palpable DP pulse. Right lower extremity: +2 pitting edema noted. No wounds or injuries noted. Small varicosities noted around the knee. Discoloration noted at the ankles. Palpable DP pulse. CEAP: C - 4 E - primary A - superficial P - reflux General: Yes normal to inspection, Yes full ROM, Yes capillary refill normal and Yes normal gait Assessment & Plan Assessment & Plan (1) Varicose veins of both lower extremities with inflammation: Code(s): I83.11 - Varicose veins of right lower extremity with inflammation; I83.12 - Varicose veins of left lower extremity with inflammation Category: Medical Plan: Ayush is presenting today on a referral from his PCP for concerns of bilateral lower extremity swelling and discomfort. He has had a venous duplex US to r/o DVT on 02/25, which was negative for a DVT. In short, the patient has evidence of venous insufficiency. I have discussed the pathophysiology with the patient. In addition I have provided informational material regarding venous disease to the patient. We have discussed conservative measures including compression, elevation, and exercise. I have also provided a handout regarding appropriate use of compression stockings and where to purchase good compression stockings as well. I have taken the liberty of ordering venous insufficiency testing with the patient. They will follow up with me after testing. The patient had an opportunity to ask questions regarding the treatment plan. All questions were answered. Imaging studies, laboratory studies and physical exam results were discussed and reviewed in detail. No major barriers to understanding were identified. The patient expressed understanding and agreement with the above treatment plan. The patient is aware they should contact our office by phone for worsening of the current condition or the appearance of new symptoms. Thank you for allowing me to participate in the vascular care of this patient. If you have any questions or concerns regarding the treatment for the above condition please do not hesitate to contact me. The office telephone contact is [phone]. This note is constructed using voice recognition software. While every effort has been made to ensure accuracy, coil inspector errors may have been included. Thank you for allowing me to participate in the care of your patient. 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
== END 2025-03-16 16:03 | disposition home or self-care (01) ==
LOC: HO.HVS 15:19
PROVIDERS: PCP Internal Medicine; Visit Provider Physician Assistant Surgical
DX: I83.11 Varicose veins of right lower extremity with inflammation (principal); I83.12 Varicose veins of left lower extremity with inflammation
CPT/HCPCS: 99204

== ENCOUNTER → 2025-03-16 15:18 | Outpatient (BNVA) | payer MEDICARE, SELFPAY | PROVIDERS: PCP Internal Medicine; Visit Provider Physician Assistant Surgical | DX: I83.11 Varicose veins of right lower extremity with inflammation (principal); I83.12 Varicose veins of left lower extremity with inflammation | CPT/HCPCS: 99202 ==

== ENCOUNTER → 2025-03-18 14:40 | Outpatient (REF) | payer MEDICARE, SELFPAY ==
--- NOTE | 2025-03-18 14:42 | ECG_ITS ---
Test Reason : M79.89, I49.9 Blood Pressure : */* mmHG Vent. Rate : 95 BPM Atrial Rate : 95 BPM P-R Int : 178 ms QRS Dur : 90 ms QT Int : 352 ms P-R-T Axes : 48 47 44 degrees QTcB Int : 442 ms Normal sinus rhythm Normal ECG When compared with ECG of 13-Mar-2017 11:39, No significant change was found Referred By: Dionicio Hall Electronically Signed By: Mart Lee
--- NOTE | 2025-03-18 14:42 | CA_ITS ---
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 The visually estimated ejection fraction is between 55-60%. Diastolic function is normal for age. - Mildly increased right ventricular cavity size. There is normal right ventricular systolic function. - There is mild dilatation of the sinuses of Valsalva measuring 4.10 cm and mild dilatation of the ascending aorta measuring 3.80 cm. Findings Left Ventricle Normal left ventricular size, thickness, systolic function, and wall motion. The visually estimated ejection fraction is between 55-60%. Diastolic function is normal for age. Right Ventricle Mildly increased right ventricular cavity size. There is normal right ventricular systolic function. Atria The left atrium is normal in size. The right atrium is mildly dilated. Aortic Valve Normal aortic valve structure and function. There is no aortic valve stenosis. There is no aortic valve regurgitation. Mitral Valve The mitral valve appears normal. There is trace mitral valve regurgitation. There is no mitral valve stenosis. Pulmonic Valve The pulmonic valve is likely normal. Tricuspid Valve Normal tricuspid valve structure. There is trace tricuspid valve regurgitation. Normal right atrial pressure. There is no evidence of pulmonary hypertension. Great Vessels All visible segments of the aorta are normal in size. There is mild dilatation of the sinuses of Valsalva measuring 4.10 cm and mild dilatation of the ascending aorta measuring 3.80 cm. The visualized portions of the pulmonary artery and branches are normal. Venous The inferior vena cava is normal in size and collapses greater than 50% with inspiration. Pericardium/Pleural There is no evidence of pericardial effusion. Prior Study Comparison No prior study available for comparison. Measurements 2D Linear Measurements IVSd: 0.98 0.6-0.9/0.6-1.0 cm LVIDd: 5.21 3.9-5.3/4.2-5.9 cm LVIDd Index: 2.45 2.4-3.2/2.2-3.1 cm/m2 LVIDs: 3.15 2.0-3.6 cm LVPWd: 0.46 0.7-1.1 cm LA Diam: 3.80 2.7-3.8/3.0-4.0 cm LAIDs Index: 1.78 1.5-2.3 cm/m2 LV Mass: 158.90 67-162/88-224 g LV Mass Index: 74.60 43-95/49-115 g/m2 LVOT Diam: 2.70 3.0+(-)1.3 cm 2D Systolic Function EF 4C: 55.60 >55% EF 2C: 52.30 >55% EF BiP: 53.90 >55% Mitral Valve MV Pk E: 0.67 MV PK A: 0.74 MV Decel Time: 155.00 E/A: 0.90 E'Lateral: 7.29 E'Medial: 6.74 E/E' Med: 9.90 E/E' Lat: 9.20 PHT: 45.00 MVA PHT: 4.89 Decel [place]: 4.32 Aortic Valve AoV Pk Jatinder: 1.07 AoV Pk Grad: 5.00 ROCIO: 4.44 LVOT LVOT Pk Jatinder: 0.83 LVOT Mn Jatinder: 0.60 LVOT VTI: 0.18 LVOT Pk Grad: 3.00 LVOT Mn Grad: 2.00 LVOT Diam: 2.70 LVOT Area: 5.73 Diastolic Function MV Pk E: 0.67 MV Pk A: 0.74 E/A: 0.90 E'Medial: 6.74 E/E' Med: 9.90 E' Laterial: 7.29 E/E' Lat: 9.20 Right Ventricle TAPSE (mm): 27.70 TVS' Jatinder: 13.60 Tricuspid Valve TR Pk Jatinder: 2.30 TR Pk Grad: 21.00 RA Press: 3.00 RVSP: 24.00 Great Vessels Aorta Sinus of Valsalva: 4.10 2.0-3.5 cm Ao Asc: 3.80 2.1-3.4 cm Pulmonary Valve PV Pk Jatinder: 1.03 Peak PV Grad: 4.00 Updated in Other Vendor System with Status of Final Mart Lee MD electronically signed on 03/21/2025 10:38:07 PM with status of Final
== END ==
LOC: HO.CARD 14:40
PROVIDERS: PCP Internal Medicine; Visit Provider Internal Medicine
DX: M79.89 Other specified soft tissue disorders (principal); I49.9 Cardiac arrhythmia, unspecified; I77.810 Thoracic aortic ectasia
CPT/HCPCS: 93005; 93306

== ENCOUNTER → 2025-03-18 14:42 | Outpatient (BNV) | payer MEDICARE, SELFPAY | PROVIDERS: PCP Internal Medicine; Visit Provider Internal Medicine Cardiovascular Disease | DX: I49.9 Cardiac arrhythmia, unspecified (principal); M79.89 Other specified soft tissue disorders | CPT/HCPCS: 93010 ==

== ENCOUNTER 2025-04-16 13:18 | Outpatient (REF) | payer MEDICARE, SELFPAY ==
--- NOTE | ~2025-04-16 | US_ITS ---
EXAMINATION: US LOWER EXTREMITY VENOUS (REFLUX EXAM), BILATERAL CLINICAL INFORMATION: Varicose veins of the right lower extremity with inflammation, venous insufficiency COMPARISON: February 25, 2025 DVT study TECHNIQUE: Color flow triplex imaging and compression Doppler was performed to evaluate both the deep and the superficial systems bilaterally. To evaluate the superficial system, the examination was performed in the upright position. Color-flow Doppler ultrasound and compression ultrasound were utilized. In addition, maneuvers were utilized to demonstrate reflux. FINDINGS: 1. DEEP VENOUS ULTRASOUND OF THE RIGHT LOWER EXTREMITY: Common Femoral Vein: Compressible, normal respiratory variation and augmented flow. Femoral Vein: Compressible, normal color flow and augmentation. Popliteal Vein: Compressible, normal augmentation. Deep Reflux: There is no evidence of reflux in the deep system in either the common femoral vein, superficial femoral or the popliteal vein. 2. SUPERFICIAL ULTRASOUND WITH DOPPLER OF RIGHT LOWER EXTREMITY: GREAT SAPHENOUS VEIN: Saphenofemoral Junction: 0.8 cm; Reflux: 0 ms Proximal Thigh: 0.6 cm; Reflux: 2100 ms Mid Thigh: 0.5 cm; Reflux: > 3500 ms Distal Thigh: 0.4 cm; Reflux: 0 ms At Knee: 0.3 cm; Reflux: 0 ms Below Knee/Proximal Calf: 0.3 cm; Reflux: 2200 ms Mid Calf: 0.4 cm; Reflux: 0 ms Ankle/Distal Calf: 0.4 cm; Reflux: 0 ms Lateral/Medial accessory GREAT SAPHENOUS VEIN: None DUPLICATED MEDIAL GREAT SAPHENOUS VEIN: Diameter: None imaged Reflux: NA DUPLICATED LATERAL GREAT SAPHENOUS VEIN: Diameter: None imaged Reflux: NA SMALL SAPHENOUS VEIN: Drainage: Thigh extension Saphenopopliteal Junction: 0.3 cm; Reflux: 0 ms Mid calf: 0.3 cm; Reflux: 0 ms Distal: 0.3 cm; Reflux: 0 ms VEIN OF GIACOMINI: Size: 0.3 cm Reflux: 0 ms PERFORATORS: Location: Great saphenous vein into varicose vein, mid thigh Size: 0.2 cm Reflux: 0 ms Location: Grade saphenous vein into varicose vein, mid calf Size: 0.3 cm Reflux: 0 ms Location: Small saphenous vein to varicose vein, mid calf Size: 0.2 cm Reflux: 0 ms Location: Small saphenous vein into varicose vein, distal calf Size: 0.2 cm Reflux: 0 ms VARICOSITIES > 3mm: Location: Great saphenous vein, distal thigh Size: 0.5 cm Reflux: > 3500 ms Location: Great saphenous vein, at knee Size: 0.3 cm Reflux: 2700 ms Location: Greater saphenous vein, proximal calf Size: 0.3 cm Reflux: 0 ms Location: Great saphenous vein, proximal calf Size: 0.5 cm Reflux: 2400 ms Location: Great saphenous vein, midcalf Size: 0.5 cm Reflux: 1200 ms 3. DEEP VENOUS ULTRASOUND OF THE LEFT LOWER EXTREMITY: Common Femoral Vein: Compressible, normal respiratory variation and augmented flow. Femoral Vein: Compressible, normal color flow and augmentation. Popliteal Vein: Compressible, normal augmentation. Deep Reflux: Popliteal vein reflux to 884 ms 4. SUPERFICIAL ULTRASOUND WITH DOPPLER OF LEFT LOWER EXTREMITY: GREAT SAPHENOUS VEIN: Saphenofemoral Junction: 0.6 cm; Reflux: 0 ms Proximal Thigh: 0.3 cm; Reflux: 0 ms Mid Thigh: 0.3 cm; Reflux: 0 ms Distal Thigh: 0.2 cm; Reflux: 0 ms At Knee: 0.2 cm; Reflux: 0 ms Below Knee/Proximl calf: 0.7 cm; Reflux: 2000 ms Mid Calf: 0.5 cm; Reflux: 2100 ms Distal Calf/Ankle: 0.3 cm; Reflux: 1700 ms Lateral/Medial accessory GREAT SAPHENOUS VEIN: None DUPLICATED MEDIAL GREAT SAPHENOUS VEIN: Diameter: None imaged cm Reflux: NA ms DUPLICATED LATERAL GREAT SAPHENOUS VEIN: Diameter: None imaged. cm Reflux: NA ms SMALL SAPHENOUS VEIN: Drainage: The extension Saphenopopliteal Junction: 0.3 cm; Reflux: 0 ms Proximal: 0.3 cm; Reflux: 0 ms Distal: 0.3 cm; Reflux: 0 ms VEIN OF GIACOMINI: Size: NA Reflux: NA PERFORATORS: Location: Greater saphenous vein, mid thigh Size: 0.2 cm Reflux: 0 ms Location: Greater saphenous vein, mid calf Size: 0.3 cm Reflux: 0 ms VARICOSITIES > 3mm: Location: Greater saphenous vein, proximal calf Size: 0.5 cm Reflux: > 3300 ms Location: Greater saphenous vein, proximal calf Size: 0.5 cm Reflux: > 3000 ms Location: Greater saphenous vein, distal calf Size: 0.3 cm Reflux: 1600 ms US/US venous insuf bilat IMPRESSION: Right: Venous incompetence is demonstrated in the great saphenous vein and multiple varicose veins. Left: Venous incompetence is demonstrated in the great saphenous vein and varicose veins. Reflux in the popliteal vein was at the upper limits of normal. Electronically signed by: Zen Manzano MD 04/16/2025 03:16 PM EDT
== END 2025-04-16 13:19 | disposition home or self-care (01) ==
LOC: HO.US 13:18
PROVIDERS: Visit Provider Physician Assistant Surgical
DX: I83.11 Varicose veins of right lower extremity with inflammation (principal); I83.12 Varicose veins of left lower extremity with inflammation
CPT/HCPCS: 93970

== ENCOUNTER → 2025-04-16 13:20 | Outpatient (BNV) | payer MEDICARE, SELFPAY | PROVIDERS: Visit Provider Radiology Diagnostic Radiology | DX: I87.2 Venous insufficiency (chronic) (peripheral) (principal) | CPT/HCPCS: 93970 ==

== ENCOUNTER 2025-04-22 15:17 | Outpatient (AMB) | payer MEDICARE, SELFPAY ==
[2025-04-22 15:19] VITALS: BP 132/72; PULSE 92; O2SAT 96; BMI 26.7
--- NOTE | 2025-04-22 15:19 | A.OFFVIS_ITS ---
Vital Signs 04/22/25 15:19 Height 6 ft Weight 197 lb 1.492 oz BMI 26.7 BP 132/72 Blood Pressure Location Lt brachial Position Sitting Pulse 92 Pulse Source Pulse Oximeter Pulse Oximetry (%) 96 Oxygen Delivery Method Room Air Intake Visit Reasons: Autoimmune thyroiditis Intake Note: Patient present today for Autoimmune thyroiditis. 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 Hyperthyroidism diagnosed November 1983, per patient was told he had Graves disease S/p PANTOJA ablation 1983 Then became hypothyroid 1986, has been on levothyroxine since then Patient currently denies heat or cold intolerance, diarrhea or constipation, hair loss, palpitation, anxiety, mood changes, low energy, changes in appearance of eyes or vision changes, tremors, increased diaphoresis or dry skin. ? Lost 20 lbs in 3 years Patient denies any difficulty swallowing, pain on swallowing or voice changes or difficulty breathing. Patient denies any history of childhood neck radiation. Denies having ever used lithium, amiodarone or biotin supplements. Patient denies any family history of thyroid cancer or thyroid disease. Physical exam General: sitting comfortably in no acute distress HEENT: normocephalic/atraumatic, Neck: supple, symmetrical Cardiac: normal heart sounds Pulm: normal breath sounds B/L, no added breath sounds Abd: not distended, no tenderness Extremities: Has bilateral edema Neuro: AAO x3, Speech: normal, no facial droop, moving all 4 extremities Laboratory Tests 04/17/22 02/18/24 02/24/25 10:50 09:53 12:06 TSH 8.09 H 2.75 17.79 H Free T4 0.92 1.18 0.92 [facility] Medical History Cardiac arrhythmia Colonoscopy refused Lymphedema of both lower extremities Perennial allergic rhinitis Vitamin D deficiency Dyslipidemia Overweight (BMI 25.0-29.9) Acquired hypothyroidism Surgical History No pertinent past surgical history Social History Housing: House Alcohol intake: never Patient Tobacco Use Status: Never used Tobacco e-Cigarette/Vaping Use: Never Used Second Hand Smoke Exposure: Yes service: No Current occupational status: retired Cognitive needs: No Hearing needs: No Vision needs: No Physical Exam Vital Signs: Last Vital Signs Pulse 92 04/22/25 15:19 BP 132/72 04/22/25 15:19 Pulse Ox 96 04/22/25 15:19 Oxygen Delivery Method Room Air 04/22/25 15:19 BMI result Body Mass Index 26.7 Assessment & Plan Assessment & Plan (1) 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 Code(s): E03.9 - Hypothyroidism, unspecified Category: Medical Plan: 75-year-old male with a history significant for Graves disease status post radioactive iodine ablation in 1983 who developed hypothyroidism in 1986. Has been on levothyroxine since then. Per patient he has been on a dose of levothyroxine 100 mcg daily for many years. Most recently blood work done in January 2025 on 02/24/2025 showed TSH was elevated at 17 with normal free T4. Dose of levothyroxine was not increased. At this time we will go up on the dose of levothyroxine to 112 mcg daily. Plan: -increase levothyroxine to 112 mcg daily. -ordered TSH, free T4, total T3, TSH receptor, TSI and TPO antibodies to be done in 6 weeks after dose change -follow up in 7-8 weeks Plan I spent 45 minutes in reviewing the record, seeing the patient and documenting in the medical record. Orders: Orders Free T4 (Free Thyroxine) 6 Weeks E03.9 - Hypothyroidism, unspecified Thyrotropin Receptor Antibody 6 Weeks E03.9 - Hypothyroidism, unspecified Thyroid Stimulating Immunoglob 6 Weeks E03.9 - Hypothyroidism, unspecified Thyroid Stimulating Hormone 6 Weeks E03.9 - Hypothyroidism, unspecified Thyroid Peroxidase Antibodies 6 Weeks E03.9 - Hypothyroidism, unspecified Medications: New levothyroxine (Synthroid) 112 mcg PO DAILY 90 tabs 1RF Discontinued levothyroxine Discontinued Reason: Doctor's Order 100 mcg PO QAM 90 days 90 tabs 1RF Coding Level of Care Code New Pt Level 4 (15680) Diagnoses Acquired hypothyroidism E03.9 Time Spent (min) 45
== END 2025-04-22 16:09 | disposition home or self-care (01) ==
LOC: HO.ENCR 15:17
PROVIDERS: PCP Internal Medicine; Visit Provider Student in an Organized Health Care Education/Training Program
DX: E03.9 Hypothyroidism, unspecified (principal)
CPT/HCPCS: 99204

== ENCOUNTER → 2025-04-22 15:17 | Outpatient (BNVA) | payer MEDICARE, SELFPAY | PROVIDERS: PCP Internal Medicine; Visit Provider Student in an Organized Health Care Education/Training Program | DX: E03.9 Hypothyroidism, unspecified (principal) | CPT/HCPCS: 99202 ==

== ENCOUNTER 2025-06-14 14:55 | Outpatient (AMB) | payer MEDICARE, SELFPAY ==
[2025-06-14 15:22] VITALS: BP 124/86; PULSE 86; O2SAT 97; BMI 25.8
--- NOTE | 2025-06-14 15:22 | MHC.PC.OV ---
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 Required: No Accompanied by: Self / Same As Patient Allergies No Known Allergies Allergy (Verified 06/21/25 03:57) Medication List - Last Reconciled 06/21/25 by Dionicio Hall MD levothyroxine (Synthroid) 112 mcg PO DAILY Tobacco use date assessed: 06/14/25 Fall risk assessment: No Falls in past year Last assessed Fall Risk: 06/14/25 Dental Screening Dental Screen Date: 06/14/25 Did you have a dental visit in the last 12 months?: No Did you have a dental problem in the last 6 months where you did not have access to dental care?: No Was dental information given to patient?: No HPI 3 month HPI Details Patient comes in today for his follow-up visit States that he feels okay He denies any headaches or dizziness Denies any chest pains, no increased shortness of breath No nausea/vomiting, no abdominal pain No change in bowel habits noted States that his legs are currently not as swollen as they were a few months ago He had his follow-up labs done back in January 2025 - to discuss his results [facility] Medical History Cardiac arrhythmia Colonoscopy refused Lymphedema of both lower extremities Perennial allergic rhinitis Vitamin D deficiency Dyslipidemia Overweight (BMI 25.0-29.9) Acquired hypothyroidism Surgical History No pertinent past surgical history Social History Housing: House Alcohol intake: never Patient Tobacco Use Status: Never used Tobacco e-Cigarette/Vaping Use: Never Used Second Hand Smoke Exposure: Yes service: No Current occupational status: retired Cognitive needs: No Hearing needs: No Vision needs: No Questionnaire PHQ-9 Over the last 2 weeks, how often have you been bothered by any of the following problems? Depression Screening Interpretation: Negative Depression Screening Done: Yes Source: Developed by Drs. Ayush L. EdenTiki alexis Kurt Kroenke and colleagues, with an educational kirby from [employer]. Thrive Questionnaire Date Thrive assessed: 02/19/25 Currently or been in a relationship where the following occur: No concerns reported THRIVE Score: 0 AUDIT C Alcohol Use Questionnaire (AUDIT-C) 1. How often do you have a drink containing alcohol?: Never 3. How often do you have six or more drinks on one occasion?: Never Total Score: 0 Score Reviewed/Action Taken: Yes GENIA-7 AMB Questionnaire GENIA-7 Date GENIA - 7 assessed: 02/19/25 Source: Developed by Drs. Ayush Harmon, Hilario Jang and colleagues, with an educational kirby from [employer]. Review of Systems Const Denies chills, Denies fatigue, Denies fever(s) and Denies headache(s) ENT Denies dysphagia, Denies dizziness, Denies otalgia, Denies headache(s), Denies neck pain, Denies odynophagia and Denies sore throat Card Denies rapid heart rate, Denies irregular heart rhythm, Denies palpitations and Denies dyspnea Resp Denies chest congestion, Denies cough and Denies dyspnea GI Denies abdominal pain, Denies constipation, Denies dysphagia, Denies heartburn, Denies diarrhea, Denies nausea, Denies odynophagia and Denies vomiting Denies difficulty urinating, Denies dysuria and Denies urinary frequency Musc Reports abnormal gait (has had trouble walking due to increasing edema in legs and feet), Denies back pain, Denies arthralgias, Denies neck pain and Reports stiffness Skin/Breast Denies rash Neuro Reports abnormal gait (has had trouble walking due to increasing edema in legs and feet), Denies dizziness, Denies headache(s) and Denies paresthesias Endo Denies fatigue and Denies palpitations Dayron/Lymph Details: (+) on and off swelling of both legs and feet Physical exam (Primary Care) Vital Signs: Last Vital Signs Pulse 86 06/14/25 15:22 BP 124/86 06/14/25 15:22 Pulse Ox 97 06/14/25 15:22 Oxygen Delivery Method Room Air 06/14/25 15:22 BMI result Body Mass Index 25.8 Tobacco/Smoking Status: Tobacco use Status Tobacco use date assessed 06/14/25 06/14/25 15:29 Patient Tobacco Use Status Never used Tobacco 06/14/25 15:29 e-Cigarette/Vaping Use Never Used 06/14/25 15:29 Depression Screening Interpretation: Negative Thrive Assessment: Date of Thrive Assessment Date Thrive assessed 02/19/25 06/14/25 15:29 Currently or been in a relationship where the following occur: No concerns reported Const General: no acute distress and alert HENMT Ears: TM's normal bilaterally and EAC's normal Throat: Yes posterior oropharynx normal and Yes tonsils normal (no TP congestion) Neck Neck: Yes supple and No lymphadenopathy Thyroid: Thyroid normal Resp Auscultation: clear to auscultation bilaterally, no rales and no wheezes Cardio Rate: regular rate Rhythm: abnormal rhythm with ectopic beats Heart sounds: no murmurs GI Palpation (GI): Soft to palpation and nontender Auscultation: normal bowel sounds General: Yes no CVA tenderness Back/Spine/Pelvis Back: no CVA tenderness Thoracic/Lumbar Spine: No lumbar spinal tenderness Skin Other: (+) some mild scaling erythematous rash noted on both lower legs and ankles Extrem General: No clubbing, No cyanosis and Yes edema (2 to 3+ bipedal edema noted over both lower extremities) Results Reviewed Results Reviewed: Laboratory Tests 02/24/25 02/24/25 12:06 12:16 WBC 4.1 L Hgb 10.8 L Hct 32.6 L Plt Count 354 D ESR 73 H Sodium 138 Potassium 3.9 Creatinine 0.91 Estimated GFR > 60 Fasting Glucose 85 Calcium 8.6 D AST 46 H ALT 24 C-Reactive Protein 1.37 H Triglycerides 53 Cholesterol 160 LDL Cholesterol, Calc 100 H HDL Cholesterol 50 Prostate Specific Ag 1.20 Vitamin B12 321 25-OH Vitamin D Total 26.2 L TSH 17.79 H Free T4 0.92 Ur Specific [place] 1.020 Urine Protein Negative Urine Glucose (UA) Negative Urine Blood Negative Urine Nitrite Negative Ur Leukocyte Esterase Negative Coding Level of Care Code Est Pt Level 4 (93229) Diagnoses Lymphedema of both lower extremities I89.0 Other cardiac arrhythmia I49.8 Arrhythmia type: other cardiac arrhythmia Acquired hypothyroidism E03.9 Elevated blood pressure reading R03.0 Dyslipidemia E78.5 Vitamin D deficiency E55.9 Perennial allergic rhinitis J30.89 Overweight (BMI 25.0-29.9) E66.3 Assessment & Plan Assessment & Plan (1) Lymphedema of both lower extremities: Code(s): I89.0 - Lymphedema, not elsewhere classified Category: Medical Plan: Venous doppler was negative for DVT back in January 2025 Vascular studies done a couple of months ago revealed (+) venous incompetence in the great saphenous vein with multiple varicose veins bilaterally Follow up with vascular surgery as scheduled for continuing management (2) Cardiac arrhythmia: Code(s): I49.9 - Cardiac arrhythmia, unspecified Category: Medical Qualifiers: Arrhythmia type: other cardiac arrhythmia Qualified Code(s): I49.8 - Other specified cardiac arrhythmias Plan: Patient appears to have frequent ectopic beats on auscultation of his heart during his physical exam a few months ago and was then sent for 12-lead EKG, which came out as NSR with no acute ST-T wave changes Chest x-rays revealed findings of COPD with borderline cardiolmegaly Echocardiogram done in February 2025 revealed normal left ventricular size, thickness, systolic function, and wall motion. The visually estimated ejection fraction is between 55-60%. Diastolic function is normal for age. There is mildly increased right ventricular cavity size, with normal right ventricular systolic function. 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 Code(s): E03.9 - Hypothyroidism, unspecified Category: Medical Plan: Continue Levothyroxine 112 mcg QD - dose was increased by endocrinology a couple of months ago Will recheck patient's TFTs in 2 to 3 months for follow up Follow up with endocrinology as scheduled (4) Elevated blood pressure reading: Code(s): R03.0 - Elevated blood-pressure reading, without diagnosis of hypertension Category: Medical Plan: (+) Hx of white coat syndrome Patient's BP readings at home tends to be much lower than his readings here in the office in the past but his blood pressure in the office today is normal Reinforced low sodium diet Patient is reminded to continue monitoring his blood pressure at home and to keep a blood pressure diary (5) Dyslipidemia: Code(s): E78.5 - Hyperlipidemia, unspecified Category: Medical Plan: Results of his labs done back in January 2025 reviewed and discussed with patient - his cholesterol levels have improved slightly from his numbers last year Reinforced low cholesterol diet Will recheck his labs and fasting lipids in 3 months for follow up (6) Vitamin D deficiency: Code(s): E55.9 - Vitamin D deficiency, unspecified Category: Medical Plan: His vitamin D level was still low on his labs done a few months ago He is instructed to start taking OTC Vitamin D3 1000 units QD (7) Perennial allergic rhinitis: Code(s): J30.89 - Other allergic rhinitis Category: Medical Plan: Patient follows up with ENT regularly for his sinus allergies/congestion He was considering endoscopic sinus surgery but could not proceed with surgery as he has no options for transportation since his is no longer driving and he has no other family in the area (8) Overweight (BMI 25.0-29.9): Code(s): E66.3 - Overweight Category: Medical Plan: Reinforced diet; exercise and weight loss are not practical at this time due to patient's comorbidities and worsening lymphedema and balance/gait impairment Plan Follow up in 3 months Orders: Orders Comprehensive [place]. Panel Fast 3 Months E78.00 - Pure hypercholesterolemia, unspecified Free T4 (Free Thyroxine) 3 Months E03.9 - Hypothyroidism, unspecified Lipid Panel 3 Months E78.00 - Pure hypercholesterolemia, unspecified Vitamin D 25-OH Total 3 Months E55.9 - Vitamin D deficiency, unspecified Vitamin B12 and Folate 3 Months E53.8 - Deficiency of other specified B group vitamins C Reactive Protein 3 Months R70.0 - Elevated erythrocyte sedimentation rate ERROL Reflex Titer and Pattern 3 Months R70.0 - Elevated erythrocyte sedimentation rate Rheumatoid Factor 3 Months R70.0 - Elevated erythrocyte sedimentation rate Complete Blood Count Auto Diff 3 Months D64.9 - Anemia, unspecified Thyroid Stimulating Hormone 3 Months E03.9 - Hypothyroidism, unspecified Erythrocyte Sedimentation Rate 3 Months R70.0 - Elevated erythrocyte sedimentation rate
== END 2025-06-14 16:24 | disposition home or self-care (01) ==
PROVIDERS: PCP Internal Medicine; Visit Provider Internal Medicine
DX: I89.0 Lymphedema, not elsewhere classified (principal); I49.8 Other specified cardiac arrhythmias; E03.9 Hypothyroidism, unspecified; R03.0 Elevated blood-pressure reading, without diagnosis of hypertension; E78.5 Hyperlipidemia, unspecified; E55.9 Vitamin D deficiency, unspecified; J30.89 Other allergic rhinitis; E66.3 Overweight

== ENCOUNTER → 2025-06-14 14:55 | Outpatient (BNVA) | payer MEDICARE, SELFPAY | PROVIDERS: PCP Internal Medicine; Visit Provider Internal Medicine | DX: I89.0 Lymphedema, not elsewhere classified (principal); I49.8 Other specified cardiac arrhythmias; E03.9 Hypothyroidism, unspecified; R03.0 Elevated blood-pressure reading, without diagnosis of hypertension; E78.5 Hyperlipidemia, unspecified; E55.9 Vitamin D deficiency, unspecified; J30.89 Other allergic rhinitis; E66.3 Overweight; Z68.25 Body mass index [BMI] 25.0-25.9, adult | CPT/HCPCS: 99212 ==

== ENCOUNTER 2025-06-21 14:46 | Outpatient (REF) | payer MEDICARE, SELFPAY ==
[2025-06-21 18:58] LABS: Free T4 (Free Thyroxine) 1.14 ng/dL (0.71-1.85); Thyroid Stimulating Hormone 1.88 uIU/mL (0.32-4.0)
== END 2025-06-21 14:47 | disposition home or self-care (01) ==
LOC: HO.WFDLDS 14:46
PROVIDERS: Visit Provider Student in an Organized Health Care Education/Training Program
DX: E03.9 Hypothyroidism, unspecified (principal)
CPT/HCPCS: 36415; 83520; 84439; 84443; 84445; 86376

== ENCOUNTER 2025-06-29 15:23 | Outpatient (AMB) | payer MEDICARE, SELFPAY ==
[2025-06-29 15:25] VITALS: BP 114/62; PULSE 96; O2SAT 98; BMI 26.2
--- NOTE | 2025-06-29 15:25 | A.OFFVIS_ITS ---
Vital Signs 06/29/25 15:25 Height 6 ft Weight 192 lb 14.472 oz BMI 26.2 BP 114/62 Blood Pressure Location Rt brachial Position Sitting Pulse 96 Pulse Source Pulse Oximeter Pulse Oximetry (%) 98 Oxygen Delivery Method Room Air Intake Visit Reasons: Follow-up Autoimmune Thyroiditis Intake Note: Patient present today for Autoimmune Thyroiditis office visit. Chief Merchandising Officer Required: No Accompanied by: Self / Same As Patient Allergies No Known Allergies Allergy (Verified 06/29/25 15:29) Medication List - Last Reconciled 06/29/25 by Hermila Pickard MD levothyroxine (Synthroid) 112 mcg PO DAILY HPI Comments Details: 75-year-old male here today for follow up of post ablative hypothyroidism. Hyperthyroidism diagnosed November 1983, per patient was told he had Graves disease S/p PANTOJA ablation 1983 Then became hypothyroid 1986, has been on levothyroxine since then Patient currently denies heat or cold intolerance, diarrhea or constipation, hair loss, palpitation, anxiety, mood changes, low energy, changes in appearance of eyes or vision changes, tremors, increased diaphoresis or dry skin. ? Lost 20 lbs in 3 years Patient denies any difficulty swallowing, pain on swallowing or voice changes or difficulty breathing. Patient denies any history of childhood neck radiation. Denies having ever used lithium, amiodarone or biotin supplements. Patient denies any family history of thyroid cancer or thyroid disease. Interval history Was taking levothyroxine 100 mcg daily, when labs were done 02/24/2025 with TSH of 17.79, free T4 0.92 In March 2025 when he established care with co levothyroxine dose increased 112 mcg daily Labs repeated 06/21/2025 showed normal TSH and free T4 Physical exam General: sitting comfortably in no acute distress HEENT: normocephalic/atraumatic, Neck: supple, symmetrical Cardiac: normal heart sounds Pulm: normal breath sounds B/L, no added breath sounds Laboratory Tests 04/17/22 02/18/24 02/24/25 10:50 09:53 12:06 TSH 8.09 H 2.75 17.79 H Free T4 0.92 1.18 0.92 Laboratory Tests 06/21/25 06/21/25 14:44 14:48 TSH 1.88 Free T4 1.14 Thyroid Stim Immunoglob 133 Thyroid Peroxidase Ab 1 TSH Receptor Ab <1.00 PFSH Medical History Cardiac arrhythmia Colonoscopy refused Lymphedema of both lower extremities Perennial allergic rhinitis Vitamin D deficiency Dyslipidemia Overweight (BMI 25.0-29.9) Acquired hypothyroidism Surgical History No pertinent past surgical history Social History Housing: House Alcohol intake: never Patient Tobacco Use Status: Never used Tobacco e-Cigarette/Vaping Use: Never Used Second Hand Smoke Exposure: Yes service: No Current occupational status: retired Cognitive needs: No Hearing needs: No Vision needs: No Physical Exam Vital Signs: Last Vital Signs Pulse 96 06/29/25 15:25 BP 114/62 06/29/25 15:25 Pulse Ox 98 06/29/25 15:25 Oxygen Delivery Method Room Air 06/29/25 15:25 BMI result Body Mass Index 26.2 Assessment & Plan Assessment & Plan (1) 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 Code(s): E03.9 - Hypothyroidism, unspecified Category: Medical Plan: 75-year-old male with a history significant for Graves disease status post radioactive iodine ablation in 1983 who developed hypothyroidism in 1986. Has been on levothyroxine since then. Per patient he has been on a dose of levothyroxine 100 mcg daily for many years. Most recently blood work done in January 2025 on 02/24/2025 showed TSH was elevated at 17 with normal free T4. Dose of levothyroxine increased by me 200 mcg daily in March 2025. Most recent labs from May 2025 showed normal TSH and free T4. Plan: -continue levothyroxine to 112 mcg daily. -ordered TSH, free T4, to be done prior to next follow up in 1 year Plan See above Orders: Orders Thyroid Stimulating Hormone 05/16/26 E03.9 - Hypothyroidism, unspecified Free T4 (Free Thyroxine) 05/16/26 E03.9 - Hypothyroidism, unspecified Medications: Refilled levothyroxine (Synthroid) 112 mcg PO DAILY 90 tabs 4RF Patient Instructions: Continue levothyroxine 112 mcg daily Repeat thyroid blood work a few days prior to next appointment in 1 year Coding Level of Care Code Est Pt Level 3 (01204) Diagnoses Acquired hypothyroidism E03.9
== END 2025-06-29 15:50 | disposition home or self-care (01) ==
LOC: HO.ENCR 15:24
PROVIDERS: PCP Internal Medicine; Visit Provider Student in an Organized Health Care Education/Training Program
DX: E03.9 Hypothyroidism, unspecified (principal)
CPT/HCPCS: 99213

== ENCOUNTER → 2025-06-29 15:23 | Outpatient (BNVA) | payer MEDICARE, SELFPAY | PROVIDERS: PCP Internal Medicine; Visit Provider Student in an Organized Health Care Education/Training Program | DX: E89.0 Postprocedural hypothyroidism (principal); Z86.39 Personal history of other endocrine, nutritional and metabolic disease | CPT/HCPCS: 99212 ==

== ENCOUNTER 2025-07-01 13:51 | Outpatient (AMB) | payer MEDICARE, SELFPAY ==
--- NOTE | 2025-07-01 13:53 | A.OFFVIS_ITS ---
Intake Visit Reasons: Follow Up 04/16 US Intake Note: Patient presents for follow up US. No new complaints since last visit. Accompanied by: Self / Same As Patient Allergies No Known Allergies Allergy (Verified 07/01/25 13:56) [facility] Follow Up 04/16 US: Details: The patient is a 75-year-old male presenting with a follow-up for venous insufficiency testing. Approximately three months ago, the patient was initially evaluated for venous insufficiency, and since then, some reduction in leg swelling has been noted. However, the patient reports persistent skin changes and swelling in the legs, with the left leg being more problematic due to limited range of motion. The patient describes difficulty bending the left leg, which affects his ability to stand up easily from a seated position. He demonstrates that he needs to extend his left leg forward to rise from a chair, indicating significant functional limitation. [facility] Medical History Cardiac arrhythmia Colonoscopy refused Lymphedema of both lower extremities Perennial allergic rhinitis Vitamin D deficiency Dyslipidemia Overweight (BMI 25.0-29.9) Acquired hypothyroidism Surgical History No pertinent past surgical history Social History Housing: House Alcohol intake: never Patient Tobacco Use Status: Never used Tobacco e-Cigarette/Vaping Use: Never Used Second Hand Smoke Exposure: Yes service: No Current occupational status: retired Cognitive needs: No Hearing needs: No Vision needs: No Review of Systems Const Reports as per HPI ENT Reports no additional complaints Card Denies chest pain, Denies chest pain at rest and Denies chest pain with activity Resp Denies chest congestion and Denies cough GI Reports no additional complaints Musc Details: pain over varicosities, aching of lower extremities, swelling, cramping, heaviness and tiredness, itching Denies abnormal gait Skin/Breast Reports pruritus and Denies wounds Neuro Reports no additional complaints and Denies abnormal gait Psych Denies no additional complaints Physical Exam Const General: cooperative, healthy appearing and comfortable Orientation/consciousness: oriented to person, oriented to place and oriented to time Neck Carotids: no bruits Chest Chest palpation & inspection: normal inspection of the chest and normal palpation of entire chest wall Resp Effort & Inspection: normal respiratory effort and able to speak in complete sentences Cardio Rate: regular rate Heart sounds: S1 normal heart sound present and S2 normal heart sound present Peripheral pulses: Peripheral pulses 2+ throughout GI Inspection: Yes normal to inspection Skin Other: +2 edema, large rope-like varicosities greater than 4 mm CEAP Classification C6 - active ulcer on right pretibial surface Ep - Etiology Primary As - superficial veins P - reflux General skin exam: dry skin Neuro General: oriented to person, oriented to place and oriented to time Extrem Right lower extremity: full ROM, normal capillary refill and edema Left lower extremity: full ROM, normal capillary refill and edema Psych Mental Status: mental status grossly normal Assessment & Plan Assessment & Plan (1) Varicose veins of right lower extremity with inflammation: Code(s): I83.11 - Varicose veins of right lower extremity with inflammation Category: Medical Plan: This patient has varicose veins with inflammation. In addition he does have active pretibial ulceration They continue to be a source of discomfort for the patient. The patient has tried conservative treatment with compression, leg elevation and exercise program for over 3 months time. They have been compliant with all treatment. This has provided minimal relief for the patient. I do not anticipate this course of treatment will alter the underlying etiology. The patient has been scheduled for lower extremity venous treatment inclusive of --- right great saphenous vein Cyanoacralate ablation. Risks, benefits, and compl ications of this procedure has been discussed in detail with the patient including but not limited to bleeding, infection, and the development of a DVT. The patient has demonstrated a clear understanding and has consented. We will schedule the patient as soon as possible. Thank you for allowing us to participate in this patient's care. If there are any questions or concerns please do not hesitate to contact us. (2) Left knee pain: Code(s): M25.562 - Pain in left knee Category: Medical Qualifiers: Chronicity: chronic Qualified Code(s): M25.562 - Pain in left knee; G89.29 - Other chronic pain Plan: Patient has poor range of motion of that left knee. Has not been addressed. Will refer to orthopedics. Orders: Referrals Orthopedics Referral G89.29 - Other chronic pain, M25.562 - Pain in left knee Coding Level of Care Code Est Pt Level 4 (52878) Complex EM visit Add On G2211 Diagnoses Varicose veins of right lower extremity with inflammation I83.11 Chronic pain of left knee M25.562; G89.29 Chronicity: chronic
== END 2025-07-01 14:35 | disposition home or self-care (01) ==
LOC: HO.HVS 13:52
PROVIDERS: PCP Internal Medicine; Visit Provider Surgery Vascular Surgery
DX: I83.11 Varicose veins of right lower extremity with inflammation (principal); M25.562 Pain in left knee; G89.29 Other chronic pain
CPT/HCPCS: 99214; G2211

== ENCOUNTER → 2025-07-01 13:51 | Outpatient (BNVA) | payer MEDICARE, SELFPAY | PROVIDERS: PCP Internal Medicine; Visit Provider Surgery Vascular Surgery | DX: I83.11 Varicose veins of right lower extremity with inflammation (principal); M25.562 Pain in left knee; G89.29 Other chronic pain | CPT/HCPCS: 99212 ==

== ENCOUNTER 2025-09-28 14:38 | Outpatient (REF) | payer MEDICARE, SELFPAY ==
[2025-09-28 17:44] LABS: MANUAL DIFF FLAG NO
[2025-09-28 18:07] LABS: Anion Gap 12 (12-20); Blood Urea Nitrogen 20 mg/dL (9-16); Carbon Dioxide 25 mmol/L (22-29); Chloride 106 mmol/L (96-108); Estimated Glomerular Filt Rate > 60; Potassium 4.0 mmol/L (3.3-5.1); Sodium 139 mmol/L (135-145)
[2025-09-28 18:08] LABS: Alanine Aminotransferase 22 U/L (0-40); Albumin Level 4.1 g/dL (3.5-5.0); Alkaline Phosphatase 90 U/L (39-117); Aspartate Amino Transferase 36 U/L (5-37); Calcium 8.7 mg/dL (8.4-10.2); Cholesterol 169 mg/dL (<200); HDL Cholesterol 47 mg/dL (>40); Total Protein 7.9 g/dL (6.5-8.0); Triglycerides 76 mg/dL (<150)
[2025-09-28 18:13] LABS: Hematocrit 34.7 % (42.0-52.0); Hemoglobin 11.5 g/dl (14.0-18.0); Imm Gran Abs Auto 0.01 X10*3/uL (0.00-0.03); Imm Gran Pct Auto 0.3 % (0.0-0.4); Lymphocytes Absolute Auto 1.0 X10*3/uL (1.2-4.9); Mean Corpuscular HGB Conc 33.1 g/dl (31.0-36.0); Mean Corpuscular Hemoglobin 32.2 pg (27.0-33.0); Mean Corpuscular Volume 97.2 fL (80.0-98.0); NRBC Abs Auto 0.000 X10*3/uL (0.0-0.012); NRBC Pct Auto 0.0 /100WBC (0.0-0.2); Platelet Count 264 X10*3/uL (160-400); Red Blood Count 3.57 X10*6/uL (4.60-5.80); White Blood Count 3.9 X10*3/uL (4.8-10.8)
[2025-09-28 18:25] LABS: Free T4 (Free Thyroxine) 1.14 ng/dL (0.71-1.85); Thyroid Stimulating Hormone 1.54 uIU/mL (0.32-4.0)
[2025-09-28 18:36] LABS: Folate 7.9 ng/mL (> or = 4.0); Vitamin B12 264 pg/mL (200-900)
[2025-09-29 21:24] LABS: Anti Nuclear Antibody Pattern Nuclear, Speckled; Anti Nuclear Antibody Screen POSITIVE (NEGATIVE); Anti Nuclear Antibody Titer 1:320 titer
== END 2025-09-28 14:39 | disposition home or self-care (01) ==
LOC: HO.WFDLDS 14:38
PROVIDERS: Visit Provider Internal Medicine
DX: Z01.84 Encounter for antibody response examination (principal); E53.8 Deficiency of other specified B group vitamins; D64.9 Anemia, unspecified; E78.00 Pure hypercholesterolemia, unspecified; E03.9 Hypothyroidism, unspecified; E55.9 Vitamin D deficiency, unspecified; R70.0 Elevated erythrocyte sedimentation rate
CPT/HCPCS: 36415; 80053; 80061; 82306; 82607; 82746; 84439; 84443; 85025; 85652; 86038; 86039; 86140; 86431